=== PATIENT | female | born 1950 | race Hispanic/Latino ===

== ENCOUNTER → 2019-08-04 | Outpatient (CLI) | payer MEDICARE | END | disposition home or self-care (01) | LOC: RAH 15:11 | PROVIDERS: ATTEND Family Medicine | DX: S46.002S Unspecified injury of muscle(s) and tendon(s) of the rotator cuff of left shoulder, sequela (principal); M19.012 Primary osteoarthritis, left shoulder; M65.9 Synovitis and tenosynovitis, unspecified; X58.XXXS Exposure to other specified factors, sequela | CPT/HCPCS: 73221 ==

== ENCOUNTER → 2019-09-06 | Outpatient (CLI) | payer MEDICARE | END | disposition home or self-care (01) | LOC: RAH 12:50 | PROVIDERS: ATTEND Family Medicine | DX: M47.815 Spondylosis without myelopathy or radiculopathy, thoracolumbar region (principal); W19.XXXA Unspecified fall, initial encounter; Y93.89 Activity, other specified; Y92.89 Other specified places as the place of occurrence of the external cause; Y99.8 Other external cause status | CPT/HCPCS: 72100 ==

== ENCOUNTER → 2020-07-02 | Outpatient (CLI) | payer MEDICARE | END | disposition home or self-care (01) | LOC: RAH 17:13 | PROVIDERS: ATTEND Family Medicine | DX: M25.761 Osteophyte, right knee (principal); M54.5 Low back pain; M25.561 Pain in right knee | CPT/HCPCS: 72100; 73562 ==

== ENCOUNTER → 2022-02-10 | Outpatient (CLI) | payer OTHER | END | disposition home or self-care (01) | LOC: RAH 14:43 | PROVIDERS: ATTEND Family Medicine | DX: G31.9 Degenerative disease of nervous system, unspecified (principal); J32.0 Chronic maxillary sinusitis | CPT/HCPCS: 70551 ==

== ENCOUNTER → 2023-10-06 | Outpatient (CLI) | payer OTHER ==
[~2023-10-06] MED LIST: GADOTERATE MEGLUMINE 10 MMOL/20 ML VIAL IV ONE
== END | disposition home or self-care (01) ==
LOC: RAH 10:20
PROVIDERS: ATTEND Internal Medicine
DX: S49.91XD Unspecified injury of right shoulder and upper arm, subsequent encounter (principal); M25.619 Stiffness of unspecified shoulder, not elsewhere classified; M19.011 Primary osteoarthritis, right shoulder; M75.101 Unspecified rotator cuff tear or rupture of right shoulder, not specified as traumatic; X58.XXXD Exposure to other specified factors, subsequent encounter
CPT/HCPCS: 73223; A9575

== ENCOUNTER → 2024-04-14 | Outpatient (CLI) | payer OTHER | END | disposition home or self-care (01) | LOC: RAH 08:39 | PROVIDERS: ATTEND Internal Medicine | DX: S09.90XA Unspecified injury of head, initial encounter (principal); W19.XXXA Unspecified fall, initial encounter; Y93.89 Activity, other specified; Y92.89 Other specified places as the place of occurrence of the external cause; Y99.8 Other external cause status | CPT/HCPCS: 70450 ==

== ENCOUNTER → 2024-10-03 | Outpatient (CLI) | payer OTHER ==
--- NOTE | 2024-10-03 14:16 | HMCIMG ---
MR SPINAL CANAL, CERV WO CON HISTORY: Pain COMPARISON: None TECHNIQUE: MRI of the cervical spine was performed utilizing multiple pulse sequences in axial and sagittal plane. Patient was not given contrast through intravenous route. FINDINGS: No abnormal signal intensity is seen of the visualized bony structure. No loss of vertebral height is seen. There is straightening of normal lordotic cervical curvature which may be related to muscle spasm or positioning. Degenerative disc signals are present at all cervical spine levels. Cerebellar tonsils are in normal position. The cervical cord is of normal signal intensity without cord compression or impingement. There appears to be cerebellar atrophy At the C3-4 level, there is spondylotic disc causing anterior CSF space effacement with bilateral lateral recess stenosis and mild bilateral neural foraminal stenosis. The central canal measures approximately 6.1 mm in its anterior posterior dimension. At the C4-5 level, there is spondylotic disc causing anterior CSF space effacement with bilateral lateral recess stenosis and mild bilateral neural foraminal stenosis. The central canal measures approximately 6.1 mm in its anterior posterior dimension. At the C5-6 level, there is spondylotic disc causing anterior CSF space effacement with bilateral lateral recess stenosis and mild bilateral neural foraminal stenosis. The central canal measures approximately 4.9 mm in its anterior posterior dimension. At the C6-7 level, there is spondylotic disc causing anterior CSF space effacement with bilateral lateral recess stenosis and mild bilateral neural foraminal stenosis. The central canal measures approximately 4.8 mm in its anterior posterior dimension. At the C7-T1 level, there is spondylotic disc causing anterior CSF space effacement with bilateral lateral recess stenosis and mild bilateral neural foraminal stenosis. The central canal measures approximately 5.8 mm in its anterior posterior dimension. IMPRESSION: 1. DJD with cervical spine spondylosis with central canal narrowing as described above predominantly involving C3-4 through C7-T1 levels. There are motion artifacts degrading the image quality.
== END | disposition home or self-care (01) ==
LOC: RAH 12:44
PROVIDERS: ATTEND Physical Medicine & Rehabilitation
DX: M47.813 Spondylosis without myelopathy or radiculopathy, cervicothoracic region (principal); M48.03 Spinal stenosis, cervicothoracic region; G25.81 Restless legs syndrome
CPT/HCPCS: 72141